=== PATIENT | female | born 1940 | race Caucasian/White ===

== ENCOUNTER 2017-01-07 19:53 | Inpatient (IN) | payer MEDICARE, OTHER ==
--- NOTE | ~2017-01-07 | HP ---
History And Physical [address] [place]. [address] NAME: THA HAMILTON : 40 STATUS : ADM IN PAT#: [id number] AGE: 76 ADM/REG DATE : 01/07/17 MR#: [id number] REPORT SERV DATE: 01/08/17 DICTATED BY: GOPI LEAVITT DATE: 01/07/17 REPORT STATUS : Draft TRANSCRIBED BY: MODL DATE: 01/07/17 DATE OF ADMISSION: 01/07/2017 CHIEF COMPLAINT: Anemia, possible GI bleed. Direct admission/transfer from [facility]. HISTORY OF PRESENT ILLNESS: Obtained from the patient as well as from the patient's medical records transferred with the patient from [facility] in [place], [place]. Apparently, the patient had sustained relatively recently left hip fracture for which she had ORIF at [facility]. Subsequently, she underwent physical therapy and just recently seems that she was discharged home. She returned to [facility] Emergency Room on 01/06/2017 with complaints of abdominal pain, complaints of constipation. In the emergency room department, the patient was noticed to have Hemoccult positive stools, decreased hemoglobin of 7.3 lower than her apparently known baseline, and she was admitted under Hospitalist Service at [facility]. The patient's hemoglobin was monitored and this morning, apparently hemoglobin had decreased, reportedly hemoglobin 6.9 with a hematocrit of 21.3. Therefore, the patient received blood transfusion, apparently only one unit, and the transfer was requested to our hospital for further management and evaluation. Presently, the patient is hemodynamically stable at the time of the arrival, and there is no "overt" GI bleeding reported. The patient does not have a cough or recently documented fever. Note that the medication list and the medical records sent with the patient from the outside hospital facility were thoroughly reviewed. The patient apparently had CT scan of the chest as well as a CT scan of the abdomen and pelvis during her short admission at the outside hospital. The results are suggesting possible left lower lobe infiltrate and "adrenal bilateral infiltrative disease." PAST MEDICAL HISTORY: Very complex significant for coronary artery disease with prior history of CABG, prior history of PCI and cardiac stents, history of hypertension, history of CHF with diastolic dysfunction, unknown recent ejection fraction. The patient's supervisor home energy consultant is Dr. Garza who had seen her recently during her admission at [facility]. History of COPD on chronic oxygen at home mostly at night, 2 L of oxygen by nasal cannula, history of obstructive sleep apnea with uncertain compliance with CPAP machine, history of continuing smoking besides the stroke, advised to quit doing so for over 60 years with smoking history from half a pack up to 3 pack of cigarettes daily throughout her life, history of right lung cancer with right middle lobectomy in the past. History of iron deficiency anemia, previously receiving blood transfusion and IV iron infusion as recommended by her hematology oncologist, followups usually by Dr. Avendano, history of chronic pain syndrome, multiple back surgeries and degenerative disk disease, history of diabetes type 2 insulin dependent, history of prior episodes of GI bleed with GERD and esophagitis by EGD [place] [address] 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 PAST SURGICAL HISTORY: Removal of right middle lobe and lymph nodes in 2003, apparently not under treatment, no chemotherapy or radiation therapy for her lung cancer. History of hernia surgery x5, history of hiatal hernia x2 surgery, hysterectomy, history of bilateral History And Physical [address] [address] NAME: THA HAMILTON : 40 STATUS : ADM IN [facility]#: [id number] AGE: 76 ADM/REG DATE : 01/07/17 MR#: [id number] REPORT SERV DATE: 01/08/17 DICTATED BY: GOPI LEAVITT DATE: 01/07/17 REPORT STATUS : Draft TRANSCRIBED BY: CASH DATE: 01/07/17 cataract surgery with intraocular lens implant, history of CABG 4 vessel disease in 2004, history of multiple cardiac stents and cardiac catheterization, history of several back surgery, laminectomy and then to "clean out Staph infection" apparently x4, history of recent left hip ORIF apparently at [facility] for left hip fracture. ALLERGIES: TO LISINOPRIL AND CODEINE. MEDICATIONS: At home according to the list provided; the patient is supposed to take albuterol MDI two puffs 3 times a day p.r.n.; Coreg 3.125 mg p.o. daily ("if correct dose and schedule, the patient is still taking it); Cardizem CD 120 mg p.o. q.a.m.; Flonase nasal spray two sprays each nostril q.a.m. and p.r.n. at bedtime; Advair Diskus 250/50 one inhalation b.i.d.; Lasix 40 mg p.o. q.a.m.; Lantus 10 units subcu b.i.d.; Imdur 30 mg p.o. q.a.m.; metformin 1000 mg p.o. b.i.d.; MS Contin 15 mg p.o. q.12 hours; Prilosec 40 mg p.o. q.a.m.; Zofran 4 mg p.o. b.i.d. p.r.n. shortness of breath; oxycodone 15 mg p.o. q.6 hours p.r.n. breakthrough pain; potassium KCl 10 mEq p.o. t.i.d.; Spiriva one inhalation daily; nitroglycerin spray, sublingual p.r.n. chest pain. FAMILY HISTORY: Significant for hypertension, coronary artery disease. SOCIAL HISTORY: She still smokes as mentioned above. Denies alcohol abuse. Denies illicit recreational drug abuse. REVIEW OF SYSTEMS: Review of systems per H and P, otherwise negative in all review of systems. Please note, that the comprehensive review of system obtained and pertinent positives were including in the H and P. PHYSICAL EXAMINATION: GENERAL: Pleasant, cooperative, presently in no acute distress. VITAL SIGNS: At the time of the transfer; blood pressure 132/79, pulse 63, respiratory rate 18, temperature 99.6, oxygen saturation 96% on 2 L by nasal cannula. HEENT: With bilateral cataracts. Extraocular movements intact. Throat, mild erythema. No exudate. NECK: Supple. No JVD. No bruits. No thyromegaly. No lymph nodes. LUNGS: Bilateral air entry. Emphysematous with scattered crackles bilateral bases. Occasional wheezes. Overall good airway movement. No rales. HEART: Positive S1, S2. Regular rate and rhythm. Positive mitral regurgitation. Murmur at the apex. PMI nondisplaced by palpation. ABDOMEN: Positive bowel sounds. Soft with mild tenderness right periumbilical area. No guarding, no rebound tenderness, no hepatosplenomegaly. Reported Hemoccult-positive stools from [facility]. EXTREMITIES: With decreased range of motion. Osteoarthritic changes. No clubbing, no cyanosis, no edema. Status post left hip fracture with surgical incision scar healing well. No signs of infection or drainage. NEUROLOGIC: Alert and oriented x3. Grossly nonfocal. Cranial nerves 2 through 12 grossly intact. Motor strength 5/5 symmetrical bilateral. Deep tendon reflexes 2/2 symmetrical bilateral. History And Physical [address] [address] NAME: THA HAMILTON : 40 STATUS : ADM IN PAT#: [id number] AGE: 76 ADM/REG DATE : 01/07/17 MR#: [id number] REPORT SERV DATE: 01/08/17 DICTATED BY: GOPI LEAVITT DATE: 01/07/17 REPORT STATUS : Draft TRANSCRIBED BY: CASH DATE: 01/07/17 BACK: With decreased range of motion. No localized tenderness. No CVA tenderness. SKIN: No rashes, no lacerations. Multiple bruises, apparently old since her previous falls and admissions. SIGNIFICANT LABORATORY DATA: No laboratory data available at this moment as the patient is a direct admission from outside hospital facility. Review of medical records sent from [facility] showed the patient had Hemoccult positive stools, showed chest x-ray suggesting possible left lower lobe airspace disease/infiltrate. Hemoglobin 6.9, hematocrit 21.3. Magnesium 2.3, initial hemoglobin 7.8, hematocrit 23.3 on 01/06/2017, platelet count 502. Sodium 137, potassium 3.8, chloride 95, bicarb 30, BUN 22, with a creatinine 1.02 which is higher than normal levels at [facility]. Liver function tests within normal limits. Glucose 255, lipase 12 which is within normal limits. Urinalysis was cloudy with white cells 5-10 and 3+ bacteria, BNP 2732 (normal range less than 1799), CK 53 with troponin I less than 0.3 which is normal limits. CT scan of the abdomen and pelvis with contrast on 01/06/2017 showed left lower lobe infiltrate, cholelithiasis and sludge ?, infiltrative disease of the bilateral adrenal glands, etiology undetermined. Also CT scan of the chest without contrast showed left lower lobe infiltrate. EKG was not available with the medical records sent over. ASSESSMENT AND PLAN AND PROBLEM LIST: The patient is a pleasant 76-year-old woman admitted as a direct admission from outside hospital facility due to significant symptomatic anemia. IMPRESSION: 1. Hematology. a. Anemia with acute blood loss component likely multifactorial with a recent left hip surgery also with Hemoccult positive stools. b. Status post blood transfusion one unit at outside hospital facility. The patient is going to be admitted, monitor with H and H and have stat laboratory data checked. If indicated, we are going to continue to provide blood transfusion. 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 Avendano and from her previous admission and hospitalization at [facility] where the patient had her left hip surgery. 2. GI problem with:. a. Hemoccult positive stools by report, with previously known gastroesophageal reflux disease and esophagitis and gastritis by prior endoscopy [place] [address] Herring. Please note the patient has not had a colonoscopy in the past as per her account. Therefore, we are going to obtain a GI consult. We are going to use PPI with Protonix 40 mg IV b.i.d. 3. Cardiovascular with:. a. Known coronary artery disease with presently elevated troponin I (likely "type 2" on demand subendocardial ischemia). We are going to continue to monitor EKG, troponin I. The patient with no chest pain presently or other symptoms. We are going to hold any antiplatelet agent such as aspirin or Plavix due to her anemia and possible GI bleed. History And Physical [address] [address] NAME: THA HAMILTON : 40 STATUS : ADM IN PAT#: [id number] AGE: 76 ADM/REG DATE : 01/07/17 MR#: [id number] REPORT SERV DATE: 01/08/17 DICTATED BY: GOPI LEAVITT DATE: 01/07/17 REPORT STATUS : Draft TRANSCRIBED BY: MODJuan DATE: 01/07/17 b. Hypertension; essential hypertension. We are going to continue Cardizem and use IV hydralazine p.r.n. for increased blood pressure. c. Congestive heart failure by history. Prior diastolic dysfunction. We are going to obtain old records and prior 2D echo, and we are going to hold the Lasix for now. Strict I's and O's and daily weights. 4. Pulmonary with:. a. Chronic obstructive pulmonary disease on chronic home oxygen therapy/chronic hypoxemic respiratory failure. b. Obstructive sleep apnea, with uncertain compliance on the home CPAP machine. c. Tobacco dependency disorder. d. History of lung cancer, treated with right lung lobectomy in the past. e. Left lower lobe airspace disease, possible pneumonia versus atelectasis. For all the above, we are going to continue the patient's bronchodilator therapy. We are going to continue oxygen supplementation on 2 L of oxygen by nasal cannula. We are going to continue the antibiotics started at outside hospital facility with Rocephin and Zithromax and may consider change to a more comprehensive antibiotic coverage for possible healthcare-associated pneumonia due to her recent hospitalization at different hospital when she had her left hip fracture repaired. Symptomatically, the patient does not have a pneumonic process at this moment. 5. Urinary tract infection (likely) with abnormal urinalysis at the outside hospital facility. The patient already had received IV antibiotics. We are going to obtain old records and possible culture results from outside hospital facility. Continue Rocephin for now. 6. Musculoskeletal problem. a. Status post recent left hip surgery for hip fracture. b. Osteoarthritis, osteoporosis, deconditioning, and debilitation. c. Chronic pain syndrome. d. Degenerative disc disease status post multiple back surgeries. We are going to continue physical therapy. We are going to continue her pain management medication. 7. Endocrinologic problem with:. a. Diabetes type 2, insulin dependent, with complications. We are going to continue Lantus/Levemir sliding scale. Check hemoglobin A1c. Hold metformin for now. Provide diabetic education. b. Hyperlipidemia, mixed type, provide low cholesterol diet. 8. Miscellaneous with history of cerebrovascular disease and prior CVA x2, and history of prior reported meningitis. Please note the patient is a limited code at this moment with the "chemical code only" as per her well-known wishes. Please note also the written H and P, and written orders and instructions. PROGNOSIS: Moderately good for this admission. Discussed with patient, and questions are answered in full. History And Physical [address] [address] NAME: THA HAMILTON : 40 STATUS : ADM IN PAT#: [id number] AGE: 76 ADM/REG DATE : 01/07/17 MR#: [id number] REPORT SERV DATE: 01/08/17 DICTATED BY: GOPI LEAVITT ION DATE: 01/07/17 REPORT STATUS : Draft TRANSCRIBED BY: MODJuan DATE: 01/07/17 RF/LATASHAL Gopi Leavitt M.D. / [id number] CC: MD Rinku Solorzano M.D. Derek W Holland, M.D. Dannis Hood Jr., M.D.
--- NOTE | ~2017-01-07 | CN ---
Consultation Report [facility] [address] [place]. [address] NAME: THA HAMILTON : 40 STATUS : ADM IN PAT#: [id number] AGE: 76 ADM/REG DATE : 01/07/17 MR#: [id number] REPORT SERV DATE: 01/09/17 DICTATED BY: BRANDAN GARZA JR. DATE: 01/09/17 REPORT STATUS : Draft TRANSCRIBED BY: CASH DATE: 01/09/17 DATE OF CONSULTATION: REFERRING PHYSICIAN: Christa Mcmullen MD INDICATION: Gastrointestinal bleeding, history of PCI, paroxysmal atrial fibrillation. HISTORY OF PRESENT ILLNESS: The patient is a 76-year-old white female with history of severe emphysema, history of known ischemic cardiomyopathy with known ejection fraction of approximately 40% to 45% with severe peripheral vascular disease, peripheral arterial disease, severe apache multivessel epicardial disease, status post prior CAB, history of paroxysmal atrial fibrillation with recurrent gastrointestinal hemorrhage while on either warfarin or factor X agents, for which either have been stopped in the past, who presented with constipation, obstipation, unstable angina, and bxi-NY-kejsohjth myocardial infarction with sepsis inflammatory response syndrome recently to [facility]. She was noted to have diminished pulses in the left arm. After she was stabilized, cardiac catheterization was performed. She was noted to have a severe stenosis of the left subclavian, which supplied blood flow to the BRONSON to the LAD, of which there was no other vessel which provided flow to the mid and distal LAD. Percutaneous transluminal angioplasty of the subclavian was performed by Dr. Johnson with acute impingement of the BRONSON at the ostium, for which emergent angioplasty of the BRONSON to the LAD was performed. A bare-metal stent was placed at that time. A SHAD-3 flow was noted with excellent result. She subsequently was placed on aspirin, Plavix, diltiazem, nitrates, and a statin and soon readied for inpatient rehabilitation. While on inpatient rehabilitation, it is reported that she signed out against medical advice and did not take her prescriptions with her. She has been home for several days with continued constipation and obstipation and has been reported to be manually "digging her stool out of her rectum." She now presents with severe anemia with hemoglobin of approximately 7.5 and brown stools laced with blood. She denies any current angina and has persistent anterior T-wave inversion with sinus rhythm with PACs. Blood pressure appears to be controlled, and telemetry notes occasional paroxysmal atrial fibrillation. She denies any new dyspnea. REVIEW OF SYSTEMS: A 10-point review of systems otherwise is unremarkable. ALLERGIES: NONE KNOWN, OTHER THAN LISINOPRIL AND CODEINE WELL THE RICKI/RECEPTOR BLOCKERS. PRESENT MEDICATIONS: Include albuterol, diltiazem which replaced prior prescriptions for carvedilol, Flonase nasal spray, Advair Diskus, Lasix, isosorbide, insulin, metformin, morphine, Protonix, Zofran, potassium, Spiriva, and nitroglycerin. She also had been placed on a statin and on Ranexa, which she is taking neither. Aspirin and Plavix were also prescribed, of which she is taking neither. PAST MEDICAL HISTORY: Notable for a history of hypertension, coronary artery disease, Consultation Report [address] [address] NAME: THA HAMILTON : 40 STATUS : ADM IN [facility]#: [id number] AGE: 76 ADM/REG DATE : 01/07/17 MR#: [id number] REPORT SERV DATE: 01/09/17 DICTATED BY: BRANDAN GARZA JR. DATE: 01/09/17 REPORT STATUS : Draft TRANSCRIBED BY: CASH DATE: 01/09/17 ischemic cardiomyopathy, prior CVA, diabetes, prior myocardial infarction, chronic anemia, frequent recurrent gastrointestinal hemorrhaging, history of prior lung cancer with a new infiltrate and new nodules, paroxysmal atrial fibrillation with elevated CHADS-VASc score and elevated HAS-BLED score, history of bilateral neuropathy, meningitis, irritable bowel, chronic constipation, sleep apnea, emphysema, history of hernia, arthritis. PAST SURGICAL HISTORY: Notable for herniorrhaphy, hiatal hernia surgery, hysterectomy, CAB, PTLA of the left subclavian, PCI, spinal surgery. SOCIAL HISTORY: Notable for continued tobacco use against medical advice. No ethanol or IV drug use. FAMILY HISTORY: Notable for coronary artery disease. PHYSICAL EXAMINATION: VITAL SIGNS: Blood pressure is 132/60, pulse is 74 and irregular, respirations 14. The patient is afebrile. HEENT: Notable for temporal wasting. NECK: Supple. Bilateral carotid bruits are noted. CARDIOVASCULAR SYSTEM: Regular rate, regular rhythm. LUNGS: Notable for diminished breath sounds in both bases with wheezes. ABDOMEN: Soft. Normoactive bowel sounds. EXTREMITIES: 1+ with no evidence of pedal edema. Bruising is noted in all four extremities. NEUROLOGIC: She appears to be grossly intact. LABORATORY DATA: Includes a sodium of 145, potassium 3.7, chloride 110, BUN 14, creatinine of 0.7, GFR of 98 mL/minute, glucose of 57, calcium of 8.2, magnesium 1.9, phosphorus 3.7. H and H of 8.3 and 26.4, white count of 11.5, platelet count of 428,000. CK of 33, MB of 1.6, troponin of 0.10. BNP of 651. TSH of 0.814. EKG is notable for sinus rhythm with frequent PACs; sinus arrhythmia; anterior precordial T-wave inversion, which appears improved from last recorded known tracing; nonspecific inferior ST changes. Chest x-ray interpretation is notable for lower lobe infiltrate. A BNP level of [address] findings support infiltrate in the lung as well as possible nodules. IMPRESSION: 1. A 76-year-old white female with history of ischemic cardiomyopathy with an ejection fraction known of approximately 40% to 45% with known chronic systolic dysfunction, known chronic diastolic dysfunction with known mild mitral insufficiency, status post recent left subclavian stent implantation, with impingement and partial occlusion of the BRONSON to the LAD, status post emergent bare-metal stent with a PCI to the ostial proximal BRONSON to the LAD on 12/24 with no objective new ischemia noted. Elevated troponins likely may be secondary to demand ischemia and severe apache multivessel disease, of which the patient is known to have. Consultation Report [id number] [facility] [place]. [address] NAME: THA HAMILTON : 40 STATUS : ADM IN PAT#: [id number] AGE: 76 ADM/REG DATE : 01/07/17 MR#: [id number] REPORT SERV DATE: 01/09/17 DICTATED BY: BRANDAN GARZA JR. DATE: 01/09/17 REPORT STATUS : Draft TRANSCRIBED BY: CASH DATE: 01/09/17 2. History of paroxysmal atrial fibrillation with elevated CHADS2-VASc score with elevated HAS-BLED score with recurrent gastrointestinal hemorrhage on both warfarin as well as recently on factor X agents. 3. History of continued tobacco use against medical advice. 4. Chronic constipation with probable patient-induced rectal trauma with subsequent hemorrhage. 5. History of hypertension and known LV hypertrophy. 6. Known renal insufficiency with mild improvement in renal function currently. 7. Known poor compliance with medication regimen. PLANS AND RECOMMENDATIONS: 1. No warfarin or factor X agent for paroxysmal atrial fibrillation, even though CHADS- VASc score is elevated as HAS-BLED score is too high and the patient has had frequent recurrent GI bleeding with each trial of anticoagulation for indication of paroxysmal atrial fibrillation. 2. Cannot interrupt the Plavix or the aspirin for the next three weeks, even if actively bleeding. If actively bleeding, then risks outweighed by the benefits of the procedure, would proceed with endoscopy, but I cannot interrupt aspirin or Plavix in hopes of cauterization. 3. Watch hematocrit and try to keep hematocrit above 28 to treat angina and small vessel disease. 4. DVT prophylaxis with SCDs or MOSES hose. 5. Tobacco cessation. 6. Would resume Lipitor. May require Ranexa in the near future 500 p.o. b.i.d. if an additional anginal support is necessary. We will follow with you in this difficult case with multiple significant comorbidities and poor compliance and patient insight. DH/MODL Brandan Garza Jr., M.D. / [id number] CC: Cole Thompson M.D. Camille Sommer, MD
--- NOTE | ~2017-01-07 | DS ---
Discharge Summary [facility] [address] [place]. [address] NAME: THA HAMILTON : 40 STATUS : DIS IN PAT#: [id number] AGE: 76 ADM/REG DATE : 01/07/17 MR#: [id number] REPORT SERV DATE: 01/14/17 DICTATED BY: VIDHI CHU DATE: 01/13/17 REPORT STATUS : Draft TRANSCRIBED BY: MODL DATE: 01/13/17 ADMISSION DATE: 01/07/2017 DISCHARGE DATE: 01/13/2017 CONDITION ON DISCHARGE: Stable. DISPOSITION: To SNF for rehab inpatient. REASON FOR TRANSFERRING TO INPATIENT REHAB OR STIFFNESS: Physical deconditioning. DIAGNOSES ON DISCHARGE: 1. Acute blood loss anemia from lower GI bleed-this has resolved. 2. The patient has not required any endoscopy at this time. It has resolved spontaneously on its own. This was most likely secondary to severe constipation that the patient has because of chronic narcotic dependence. The patient states that she is dependent on narcotics because of several back surgeries and hip replacements and osteoarthritis which causes her to have chronic severe pain. 3. Coronary artery disease, recent cardiac catheterization and PCI. The patient is on aspirin, Plavix, statin, and Isordil for this per Cardiology. 4. Paroxysmal atrial fibrillation-no anticoagulation in this patient given the risk of gastrointestinal bleed; however, continue aspirin and Plavix. Ventricular response rate is controlled in this patient with diltiazem. 5. Chronic diastolic dysfunction of the heart, continue Bumex. 6. Chronic obstructive pulmonary disease, stable. Continue Spiriva, inhaled corticosteroids. Supplemental oxygen as needed. 7. Physical deconditioning and hence transferred to rehab. 8. Diabetes mellitus, which is controlled with sliding scale insulin. MEDICATIONS: The patient will be transferred on will include the followin. Aspirin 81 mg once a day, Lipitor 40 mg once a day, Bumex 1 mg once a day, Plavix 75 mg once a day, diltiazem CD 120 mg once a day, fluticasone 2 sprays in each nostril once a day, insulin level 3 sliding scale p.r.n. for blood glucose levels higher per scale. 2. Isosorbide mononitrate or Imdur ER 60 mg once a day, magnesium oxide 400 mg once a day, MS Contin 15 mg p.o. b.i.d. as the patient insists that she has to have this, Movantik or naloxegol oxalate 25 mg once a day, omeprazole 40 mg p.o. once a day, polyethylene glycol on an as needed basis p.r.n. for constipation. 3. Potassium 10 mEq p.o. t.i.d. 4. The patient will also be on Advair Diskus 250/50 one puff b.i.d., and metformin 1000 mg p.o. b.i.d., Spiriva one capsule as directed via [employer] once a day, Ventolin HFA two puffs three times a day p.r.n., Zofran 4 mg p.o. b.i.d. p.r.n. The most recent labs that I have on this patient include the followin. On 01/13/2017, she has the following most recent labs. Sodium 139, potassium 4.2, BUN is 15, creatinine is 0.7, glucose is 191 on 01/12/2017. On 01/12/2017, also her WBC count is normal at 6.5, hemoglobin 9.7, hematocrit 31.6 which is as good as it can get in her, platelets 398. 2. Her BNP stays chronically elevated at about 650. Discharge Summary [address] [address] NAME: THA HAMILTON : 40 STATUS : DIS IN PAT#: [id number] AGE: 76 ADM/REG DATE : 01/07/17 MR#: [id number] REPORT SERV DATE: 01/14/17 DICTATED BY: VIDHI CHU DATE: 01/13/17 REPORT STATUS : Draft TRANSCRIBED BY: MODL DATE: 01/13/17 3. Her troponin I was slightly elevated on 01/08/2017 upon admission, but the patient is asymptomatic now and as mentioned above, the patient had a recent PCI for which she is on aspirin and Plavix and has been evaluated by financial representative. A1c shows fairly normally controlled diabetes mellitus for which she will be on sliding scale insulin level 3. I have spent about 40 minutes in coordinating discharge care of this patient including face- to-face encounter and summarizing this discharge. ADONAY/CASH Vidhi Chu M.D. / [id number] CC: Cole Thompson M.D.
--- NOTE | ~2017-01-07 | CN ---
Consultation Report [facility] [address] [place]. [address] NAME: THA TAVAREZ : 40 STATUS : ADM IN [facility]#: [id number] AGE: 76 ADM/REG DATE : 01/07/17 MR#: [id number] REPORT SERV DATE: 01/09/17 DICTATED BY: ZEHRA MCMULLEN DATE: 01/09/17 REPORT STATUS : Draft TRANSCRIBED BY: MODJuan DATE: 01/09/17 GI CONSULTATION DATE OF CONSULTATION: 01/08/2017 REASON FOR CONSULTATION: Anemia. HISTORY OF PRESENT ILLNESS: Ms. Tavarez is a 76-year-old female, who has come from [facility] after suffering from a left hip fracture, status post ORIF at [facility]. She also has some abdominal pain and constipation. GI has been consulted for history of anemia and FOB positive stools. She denies any clear melena. No hematochezia or rectal bleeding. No nausea or vomiting. No coffee-ground or hematemesis. Her hemoglobin was 7.3, went down to 6.9, hematocrit 21.3. Today, her hemoglobin is 7.7, hematocrit is 24, platelets 409. She had an EGD by Dr. Herring in October 2014 for her anemia and melena at that time, which showed esophagitis, hiatal hernia, gastritis, and duodenitis in the bulb, and normal-appearing second and third portion of duodenum. PAST MEDICAL HISTORY: Coronary artery disease, PCI with stent placement, hypertension, CHF, CVA, diabetes, COPD, dyslipidemia, and lung cancer. FAMILY HISTORY: Coronary artery disease and hypertension. SOCIAL HISTORY: Patient continues to smoke cigarettes. PAST SURGICAL HISTORY: Lymph node and right lobectomy for lung cancer, back surgery, ORIF, hiatal hernia surgery, hysterectomy, abdominal hernia surgery, and cataract surgery. MEDICATIONS: Reviewed. ALLERGIES: REVIEWED. PHYSICAL EXAMINATION: GENERAL: The patient is an elderly female, in no acute distress. HEENT: Atraumatic and normocephalic. Anicteric. Mucous membranes moist. CARDIAC: S1 and S2. CHEST: Clear. ABDOMEN: Soft, nontender, and nondistended. Bowel sounds normoactive. LABORATORY DATA: WBC 6.6, hemoglobin 7.7, hematocrit 24, platelets 409, sodium 142, potassium 4.5, chloride 88, bicarb 27, BUN 19, creatinine 1.78, glucose 172. Liver enzymes normal. IMPRESSION AND PLAN: Anemia FOB positive. The patient had an EGD performed by Dr. Herring for this reason in 2014. The patient does not seem to have overt GI bleed at this time. We Consultation Report [facility] [address] [place]. [address] NAME: THA TAVAREZ : 40 STATUS : ADM IN [facility]#: [id number] AGE: 76 ADM/REG DATE : 01/07/17 MR#: [id number] REPORT SERV DATE: 01/09/17 DICTATED BY: ZEHRA MCMULLEN DATE: 01/09/17 REPORT STATUS : Draft TRANSCRIBED BY: MODL DATE: 01/09/17 will continue to follow with you and discuss with Dr. Rinku Herring, regarding any further endoscopic evaluation. CS/MODL Zehra Mcmullen MD / [id number] CC: Cole Thompson M.D.
[~2017-01-07 19:53] MED LIST: *UNABLE1; ADVAIR; ADVAIR100 INH; ADVAIR250 INH; ASAB PO; ASABAYER PO; AVINZA30 PO; BENTYL20 PO; CARD30 PO; CARDIZEM LA180 MG PO; CARTIA XT120 MG/24 PO; CARTIA XT300 MG/24 PO; CRESTOR10 PO; CRESTOR20 MG PO; DIGITEK0.125 MG PO; EZFE 200200 MG PO; FLONASE NAS; FORTEO SC; GLUCOPHAGE1000 MG PO; IMDUR30 PO; ISOSORB DIN30 MG PO; KDUR10 PO; KLOR-CON 1010 MEQ PO; L40 PO; LAN125 PO; LANTUSCART PO; LORTAB10 PO; MAXIMUM D3 PO; MICRO-K10 MEQ PO; MSCONT60 PO; NEUR400 PO; NITROGLYCERIN PO; NITROSTAT0.4 MG SL; NOVOLOG SC; NOVOPEN SC; OXYCOD PO; PLAVIX PO; PR25 PO; PRILO PO; PRIN10 PO; PROAIR HFA INH; RAN500 PO; SINGULAIR1 PO; SPIRIVA INH; VENTOLIN HFA INH; VERAMYST27.5 MCG NAS; X25 PO
[2017-01-07] MEDS ORDERED: GLUCOPHAGE1000 MG PO (20:54)
[2017-01-07] MEDS ORDERED: KLOR-CON 1010 MEQ PO (20:55)
[2017-01-07] MEDS ORDERED: PRILOSEC40 MG PO (20:55)
[2017-01-07] MEDS ORDERED: CARTIA XT120 MG/24 PO (20:55)
[2017-01-07] MEDS ORDERED: ADVAIR250 INH (20:56)
[2017-01-07] MEDS ORDERED: SPIRIVA INH (20:56)
[2017-01-07] MEDS ORDERED: IMDUR30 PO (20:56)
[2017-01-07] MEDS ORDERED: VENTOLIN HFA INH (20:57)
[2017-01-07] MEDS ORDERED: L40 PO (20:57)
[2017-01-07] MEDS ORDERED: FLONASE NAS ×2 (20:58)
[2017-01-07 20:59] LABS: BASOPHILS 0.1 %; BASOPHILS ABSOLUTE 0.01 10/3/uL (0.0-0.16); EOSINOPHILS 0.3 %; EOSINOPHILS ABSOLUTE 0.02 10/3/uL (0.0-0.53); IMMATURE GRANULOCYTES 0.5 %; IMMATURE GRANULOCYTES ABSOLUTE 0.04 10/3/uL (0.0-0.11); LYMPHOCYTES 5.6 %; LYMPHOCYTES ABSOLUTE 0.42 10/3/uL (0.67-4.30); MEAN CORPUS HGB CONC 31.8 g/dL (32.0-36.0); MEAN CORPUSCULAR HEMOGLOB 28.6 pg (26.0-34.0); MEAN PLATELET VOLUME 9.3 fL (9.2-13.0); MONOCYTES 0.5 %; MONOCYTES ABSOLUTE 0.04 10/3/uL (0.21-1.20); NEUTROPHILS ABSOLUTE 6.91 10/3/uL (2.02-8.40); RBC DISTRIBUTION WIDTH 17.7 % (12.0-16.0); WHITE BLOOD CELLS 7.4 10/3/uL (4.5-10.5)
[2017-01-07] MEDS ORDERED: ZOFRAN4 PO (20:59)
[2017-01-07 21:01] LABS: HEMATOCRIT 29.2 % (36.0-48.0); HEMOGLOBIN 9.3 g/dL (12.0-16.0); MANUAL DIFF NO %; MEAN CORPUSCULAR VOLUME 89.8 fL (80-100); PLATELET COUNT 490 10/3/uL (150-400); RED CELL COUNT 3.25 10/6/uL (4.0-5.6)
[2017-01-07] MEDS ORDERED: MSCONT15 PO (21:01)
[2017-01-07] MEDS ORDERED: ROXICODONE15 MG PO (21:02)
[2017-01-07] MEDS ORDERED: COREG3 PO (21:03)
[2017-01-07] MEDS ORDERED: LANTUSCART SC (21:04)
[2017-01-07] MEDS ORDERED: NITROGLYCERIN SPRAY SL (21:05)
[2017-01-07 21:17] LABS: BUN (BLOOD UREA NITROGEN) 17 MG/DL (6-23); CALCIUM, SERUM 8.1 MG/DL (8.5-10.4); CHLORIDE, SERUM 107 MMOL/L (96-112); CO2 (CARBON DIOXIDE) 29 MMOL/L (24-34); CPK 48 U/L (0-200); CREATININE 1.13 MG/DL (0.55-1.02); GFR AFRICAN AMERICAN 55 ML/MIN (>=60); GFR NON AFRICAN AMERICAN 47 ML/MIN (>=60); PHOSPHORUS, SERUM 3.3 MG/DL (2.5-4.5); SODIUM, SERUM 144 MMOL/L (135-148)
[2017-01-07 21:18] LABS: CK-MB 1.7 NG/ML; GLUCOSE, SERUM 294 MG/DL (60-99); POTASSIUM, SERUM 4.8 MMOL/L (3.5-5.3); TROPONIN I 0.14 NG/ML (<0.05)
[2017-01-07 21:50] LABS: PROCALCITONIN <0.05 ng/mL (<0.5)
[2017-01-07 22:52] LABS: RETICULOCYTE COUNT 4.7 % (0.5-2.9); RETICULOCYTE COUNT ABSOLUTE 151.9 10/3/uL (20.2-119.8)
[2017-01-07 23:10] LABS: DIRECT BILIRUBIN 0.1 MG/DL (0.0-0.4); FERRITIN 409 NG/ML (8-252); INDIRECT BILIRUBIN(NOT ORDER) 0.3 MG/DL (0.1-0.9); IRON BINDING CAPACITY 248 MCG/DL (225-410); IRON, SERUM 47 MCG/DL (35-150); SGOT(AST) 27 U/L (5-40); SGPT(ALT) 31 U/L (5-65); TOTAL BILIRUBIN 0.4 MG/DL (0-1.2); TOTAL PROTEIN 6.6 G/DL (6.0-8.5)
[2017-01-07 23:11] LABS: ALKALINE PHOSPHATASE 108 U/L (45-117); ULTRASENSITIVE TSH 0.814 MCIU/ML (0.358-3.740)
[2017-01-08 05:55] LABS: BASOPHILS 0.2 %; BASOPHILS ABSOLUTE 0.01 10/3/uL (0.0-0.16); EOSINOPHILS 0 %; HEMOGLOBIN 7.9 g/dL (12.0-16.0); IMMATURE GRANULOCYTES 0.3 %; IMMATURE GRANULOCYTES ABSOLUTE 0.02 10/3/uL (0.0-0.11); LYMPHOCYTES 12.6 %; LYMPHOCYTES ABSOLUTE 0.83 10/3/uL (0.67-4.30); MEAN CORPUS HGB CONC 32.9 g/dL (32.0-36.0); MEAN CORPUSCULAR HEMOGLOB 29.4 pg (26.0-34.0); MEAN CORPUSCULAR VOLUME 89.2 fL (80-100); MEAN PLATELET VOLUME 9.2 fL (9.2-13.0); MONOCYTES 4.4 %; MONOCYTES ABSOLUTE 0.29 10/3/uL (0.21-1.20); NEUTROPHILS 82.5 %; NEUTROPHILS ABSOLUTE 5.44 10/3/uL (2.02-8.40); PLATELET COUNT 409 10/3/uL (150-400); RBC DISTRIBUTION WIDTH 17.9 % (12.0-16.0); RED CELL COUNT 2.69 10/6/uL (4.0-5.6); WHITE BLOOD CELLS 6.6 10/3/uL (4.5-10.5)
[2017-01-08 05:58] LABS: MANUAL DIFF NO %
[2017-01-08 06:11] LABS: ALBUMIN 2.5 G/DL (3.5-5.0); BUN (BLOOD UREA NITROGEN) 19 MG/DL (6-23); CALCIUM, SERUM 8.3 MG/DL (8.5-10.4); CHLORIDE, SERUM 108 MMOL/L (96-112); CO2 (CARBON DIOXIDE) 27 MMOL/L (24-34); CPK 33 U/L (0-200); CREATININE 0.78 MG/DL (0.55-1.02); GFR AFRICAN AMERICAN 86 ML/MIN (>=60); GFR NON AFRICAN AMERICAN 74 ML/MIN (>=60); PHOSPHORUS, SERUM 3.7 MG/DL (2.5-4.5); POTASSIUM, SERUM 4.5 MMOL/L (3.5-5.3); SGOT(AST) 14 U/L (5-40); SGPT(ALT) 16 U/L (5-65); SODIUM, SERUM 142 MMOL/L (135-148); TOTAL BILIRUBIN 0.3 MG/DL (0-1.2); TOTAL PROTEIN 5.4 G/DL (6.0-8.5)
[2017-01-08 06:13] LABS: ALKALINE PHOSPHATASE 73 U/L (45-117); CK-MB 1.6 NG/ML; DIRECT BILIRUBIN < 0.1 MG/DL (0.0-0.4); GLUCOSE, SERUM 172 MG/DL (60-99); INDIRECT BILIRUBIN(NOT ORDER) 0.2 MG/DL (0.1-0.9)
[2017-01-08 19:26] LABS: HEMOGLOBIN 8.5 g/dL (12.0-16.0)
[2017-01-08 19:28] LABS: HEMATOCRIT 26.7 % (36.0-48.0)
[2017-01-09 03:43] LABS: ALLENS TEST Pos; BE (BASE EXCESS) 1.6 MEQ/L (0 +/- 2.5); CARBOXYHEMOGLOBIN 0.1 % (0-3); DEVICE NC; HCO3 (ACTUAL BICARBONATE) 26.9 MEQ/L (23-27); HEMOBLOGIN CONTENT 8.9 G/DL (12-16); INSTRUMENT SERIAL # 35151; METHEMOGLOBIN 0.8 % (0-3); O2 CONTENT 12.2 VOL% (18-24); PCO2 (CO2 TENSION) 46 MMHG (35-45); PO2 (O2 TENSION) 105 MMHG (79-93); SAMPLE Arterial; pH 7.39 (7.37-7.43)
[2017-01-09 04:41] LABS: BASOPHILS 0.2 %; BASOPHILS ABSOLUTE 0.02 10/3/uL (0.0-0.16); EOSINOPHILS 1.3 %; EOSINOPHILS ABSOLUTE 0.15 10/3/uL (0.0-0.53); HEMATOCRIT 26.4 % (36.0-48.0); HEMOGLOBIN 8.3 g/dL (12.0-16.0); IMMATURE GRANULOCYTES 0.3 %; IMMATURE GRANULOCYTES ABSOLUTE 0.04 10/3/uL (0.0-0.11); LYMPHOCYTES 13.1 %; LYMPHOCYTES ABSOLUTE 1.51 10/3/uL (0.67-4.30); MANUAL DIFF NO %; MEAN CORPUS HGB CONC 31.4 g/dL (32.0-36.0); MEAN CORPUSCULAR HEMOGLOB 28.4 pg (26.0-34.0); MEAN CORPUSCULAR VOLUME 90.4 fL (80-100); MEAN PLATELET VOLUME 9.2 fL (9.2-13.0); MONOCYTES 5.9 %; MONOCYTES ABSOLUTE 0.68 10/3/uL (0.21-1.20); NEUTROPHILS 79.2 %; NEUTROPHILS ABSOLUTE 9.14 10/3/uL (2.02-8.40); PLATELET COUNT 428 10/3/uL (150-400); RBC DISTRIBUTION WIDTH 17.9 % (12.0-16.0); RED CELL COUNT 2.92 10/6/uL (4.0-5.6); WHITE BLOOD CELLS 11.5 10/3/uL (4.5-10.5)
[2017-01-09 04:50] LABS: CALCIUM, SERUM 8.2 MG/DL (8.5-10.4); CHLORIDE, SERUM 110 MMOL/L (96-112); CO2 (CARBON DIOXIDE) 26 MMOL/L (24-34); GFR AFRICAN AMERICAN 98 ML/MIN (>=60); GFR NON AFRICAN AMERICAN 84 ML/MIN (>=60); POTASSIUM, SERUM 3.7 MMOL/L (3.5-5.3); SODIUM, SERUM 145 MMOL/L (135-148)
[2017-01-09 04:54] LABS: BUN (BLOOD UREA NITROGEN) 14 MG/DL (6-23); GLUCOSE, SERUM 57 MG/DL (60-99)
[2017-01-09 18:12] LABS: HEMATOCRIT 24.4 % (36.0-48.0); HEMOGLOBIN 7.8 g/dL (12.0-16.0)
[2017-01-09 23:31] LABS: HEMOGLOBIN 8.6 g/dL (12.0-16.0)
[2017-01-10 04:48] LABS: BASOPHILS 0.3 %; BASOPHILS ABSOLUTE 0.02 10/3/uL (0.0-0.16); EOSINOPHILS 3.5 %; EOSINOPHILS ABSOLUTE 0.27 10/3/uL (0.0-0.53); HEMATOCRIT 26.7 % (36.0-48.0); HEMOGLOBIN 8.4 g/dL (12.0-16.0); IMMATURE GRANULOCYTES 0.4 %; IMMATURE GRANULOCYTES ABSOLUTE 0.03 10/3/uL (0.0-0.11); LYMPHOCYTES 16.2 %; LYMPHOCYTES ABSOLUTE 1.25 10/3/uL (0.67-4.30); MEAN CORPUS HGB CONC 31.5 g/dL (32.0-36.0); MEAN CORPUSCULAR HEMOGLOB 28.8 pg (26.0-34.0); MEAN CORPUSCULAR VOLUME 91.4 fL (80-100); MEAN PLATELET VOLUME 9.3 fL (9.2-13.0); MONOCYTES 9.6 %; MONOCYTES ABSOLUTE 0.74 10/3/uL (0.21-1.20); NEUTROPHILS ABSOLUTE 5.42 10/3/uL (2.02-8.40); PLATELET COUNT 406 10/3/uL (150-400); RBC DISTRIBUTION WIDTH 17.8 % (12.0-16.0); RED CELL COUNT 2.92 10/6/uL (4.0-5.6); WHITE BLOOD CELLS 7.7 10/3/uL (4.5-10.5)
[2017-01-10 04:55] LABS: MANUAL DIFF NO %
[2017-01-10 05:17] LABS: BUN (BLOOD UREA NITROGEN) 16 MG/DL (6-23); CALCIUM, SERUM 8.3 MG/DL (8.5-10.4); CHLORIDE, SERUM 106 MMOL/L (96-112); CO2 (CARBON DIOXIDE) 29 MMOL/L (24-34); CREATININE 0.89 MG/DL (0.55-1.02); GFR AFRICAN AMERICAN 73 ML/MIN (>=60); GFR NON AFRICAN AMERICAN 63 ML/MIN (>=60); SODIUM, SERUM 142 MMOL/L (135-148)
[2017-01-10 05:18] LABS: GLUCOSE, SERUM 204 MG/DL (60-99); POTASSIUM, SERUM 4.7 MMOL/L (3.5-5.3)
[2017-01-10 11:27] LABS: HEMATOCRIT 31.8 % (36.0-48.0)
[2017-01-10 16:57] LABS: HEMATOCRIT 30.7 % (36.0-48.0); HEMOGLOBIN 9.7 g/dL (12.0-16.0)
[2017-01-11 05:14] LABS: BASOPHILS 0.6 %; BASOPHILS ABSOLUTE 0.04 10/3/uL (0.0-0.16); EOSINOPHILS 4.6 %; EOSINOPHILS ABSOLUTE 0.33 10/3/uL (0.0-0.53); HEMATOCRIT 28.8 % (36.0-48.0); HEMOGLOBIN 9.1 g/dL (12.0-16.0); IMMATURE GRANULOCYTES 0.3 %; IMMATURE GRANULOCYTES ABSOLUTE 0.02 10/3/uL (0.0-0.11); LYMPHOCYTES 25.1 %; LYMPHOCYTES ABSOLUTE 1.79 10/3/uL (0.67-4.30); MEAN CORPUS HGB CONC 31.6 g/dL (32.0-36.0); MEAN CORPUSCULAR HEMOGLOB 28.9 pg (26.0-34.0); MEAN CORPUSCULAR VOLUME 91.4 fL (80-100); MONOCYTES ABSOLUTE 0.64 10/3/uL (0.21-1.20); NEUTROPHILS 60.4 %; NEUTROPHILS ABSOLUTE 4.32 10/3/uL (2.02-8.40); PLATELET COUNT 402 10/3/uL (150-400); RBC DISTRIBUTION WIDTH 17.3 % (12.0-16.0); RED CELL COUNT 3.15 10/6/uL (4.0-5.6); WHITE BLOOD CELLS 7.1 10/3/uL (4.5-10.5)
[2017-01-11 05:15] LABS: MANUAL DIFF NO %
[2017-01-11 05:29] LABS: BUN (BLOOD UREA NITROGEN) 14 MG/DL (6-23); CALCIUM, SERUM 8.8 MG/DL (8.5-10.4); CHLORIDE, SERUM 104 MMOL/L (96-112); CO2 (CARBON DIOXIDE) 30 MMOL/L (24-34); GFR AFRICAN AMERICAN 83 ML/MIN (>=60); GFR NON AFRICAN AMERICAN 72 ML/MIN (>=60); POTASSIUM, SERUM 4.5 MMOL/L (3.5-5.3); SODIUM, SERUM 141 MMOL/L (135-148)
[2017-01-11 05:32] LABS: GLUCOSE, SERUM 154 MG/DL (60-99)
[2017-01-11 19:23] LABS: HEMATOCRIT 31.1 % (36.0-48.0); HEMOGLOBIN 9.9 g/dL (12.0-16.0)
[2017-01-12 05:16] LABS: BASOPHILS 0.5 %; BASOPHILS ABSOLUTE 0.03 10/3/uL (0.0-0.16); EOSINOPHILS 3.2 %; EOSINOPHILS ABSOLUTE 0.21 10/3/uL (0.0-0.53); HEMATOCRIT 28.7 % (36.0-48.0); HEMOGLOBIN 9.1 g/dL (12.0-16.0); IMMATURE GRANULOCYTES 0.3 %; IMMATURE GRANULOCYTES ABSOLUTE 0.02 10/3/uL (0.0-0.11); LYMPHOCYTES 23.2 %; LYMPHOCYTES ABSOLUTE 1.51 10/3/uL (0.67-4.30); MEAN CORPUS HGB CONC 31.7 g/dL (32.0-36.0); MEAN CORPUSCULAR VOLUME 91.4 fL (80-100); MEAN PLATELET VOLUME 9.4 fL (9.2-13.0); MONOCYTES 9.4 %; MONOCYTES ABSOLUTE 0.61 10/3/uL (0.21-1.20); NEUTROPHILS 63.4 %; NEUTROPHILS ABSOLUTE 4.12 10/3/uL (2.02-8.40); PLATELET COUNT 398 10/3/uL (150-400); RBC DISTRIBUTION WIDTH 17.2 % (12.0-16.0); RED CELL COUNT 3.14 10/6/uL (4.0-5.6); WHITE BLOOD CELLS 6.5 10/3/uL (4.5-10.5)
[2017-01-12 05:19] LABS: MANUAL DIFF NO %
[2017-01-12 05:32] LABS: BUN (BLOOD UREA NITROGEN) 15 MG/DL (6-23); CHLORIDE, SERUM 102 MMOL/L (96-112); CO2 (CARBON DIOXIDE) 33 MMOL/L (24-34); CREATININE 0.79 MG/DL (0.55-1.02); GFR AFRICAN AMERICAN 84 ML/MIN (>=60); GFR NON AFRICAN AMERICAN 73 ML/MIN (>=60); POTASSIUM, SERUM 4.2 MMOL/L (3.5-5.3); SODIUM, SERUM 139 MMOL/L (135-148)
[2017-01-12 05:34] LABS: GLUCOSE, SERUM 191 MG/DL (60-99)
[2017-01-12 18:32] LABS: HEMOGLOBIN 9.7 g/dL (12.0-16.0)
[2017-01-12 18:36] LABS: HEMATOCRIT 31.6 % (36.0-48.0)
== END 2017-01-13 15:25 | DRG 393 ==
LOC: 6NO 19:53
PROVIDERS: Internal Medicine; Internal Medicine Cardiovascular Disease; Internal Medicine Gastroenterology
DX: K64.9 Unspecified hemorrhoids (principal); J96.20 Acute and chronic respiratory failure, unspecified whether with hypoxia or hypercapnia; K92.2 Gastrointestinal hemorrhage, unspecified; D62 Acute posthemorrhagic anemia; J44.1 Chronic obstructive pulmonary disease with (acute) exacerbation; F11.20 Opioid dependence, uncomplicated; I48.0 Paroxysmal atrial fibrillation; I25.5 Ischemic cardiomyopathy; I25.10 Atherosclerotic heart disease of native coronary artery without angina pectoris; E11.9 Type 2 diabetes mellitus without complications; F17.210 Nicotine dependence, cigarettes, uncomplicated; I73.9 Peripheral vascular disease, unspecified; I49.1 Atrial premature depolarization; K44.9 Diaphragmatic hernia without obstruction or gangrene; K58.1 Irritable bowel syndrome with constipation; K21.9 Gastro-esophageal reflux disease without esophagitis; E78.5 Hyperlipidemia, unspecified; E78.00 Pure hypercholesterolemia, unspecified; G47.33 Obstructive sleep apnea (adult) (pediatric); G89.4 Chronic pain syndrome; Z79.4 Long term (current) use of insulin; Z95.1 Presence of aortocoronary bypass graft; Z82.49 Family history of ischemic heart disease and other diseases of the circulatory system; Z88.8 Allergy status to other drugs, medicaments and biological substances; Z88.5 Allergy status to narcotic agent; Z86.73 Personal history of transient ischemic attack (TIA), and cerebral infarction without residual deficits; Z85.118 Personal history of other malignant neoplasm of bronchus and lung; Z90.710 Acquired absence of both cervix and uterus
CPT/HCPCS: 36415; 36600; 71010; 71020; 80048; 80069; 80076; 82550; 82553; 82728; 82805; 82962; 83036; 83540; 83550; 83735; 83880; 84145; 84439; 84443; 84484; 85014; 85018; 85025; 85045; 86850; 86900; 86901; 93005; 94640; 97110-GP; 97161-GP; 97165-GO; 97530-GP; A9270-GY; C9113; G8978-CL-GP; G8979-CJ-GP; G8987-CK-GO; G8988-CJ-GO; J0456

== ENCOUNTER 2017-01-20 23:49 | Inpatient (IN) | payer MEDICARE, OTHER ==
--- NOTE | ~2017-01-20 | EGD ---
EGD REPORT [facility] [address] [address] NAME: ESTRELLITA TAVAREZ : 40 STATUS : ADM IN PAT#: [id number] AGE: 76 ADM/REG DATE : 01/21/17 MR#: [id number] REPORT SERV DATE: 01/23/17 DICTATED BY: JEFF HORAN DATE: 01/23/17 REPORT STATUS : Draft [facility]: [facility] DATE: 01/23/17 Endoscopy Center Patient Name: Estrellita Tavarez Date of : 1940 Attending MD: JEFF HORAN MD Procedure Date No Time: 01/23/2017 Procedure: Upper GI endoscopy Indications: Anemia, Heme positive stool, Melena Medicines: Propofol per Anesthesia Complications: No immediate complications. Procedure: Pre-Anesthesia Assessment: - ASA Grade Assessment: IV - A patient with severe systemic disease that is a constant threat to life. After obtaining informed consent, the endoscope was passed under direct vision. Throughout the procedure, the patient's blood pressure, pulse, and oxygen saturations were monitored continuously. The GIF [id number] was introduced through the mouth, and advanced to the third part of duodenum. The upper GI endoscopy was accomplished without difficulty. The patient tolerated the procedure well. Findings: Non-severe esophagitis with no bleeding was found in the entire esophagus. A small hiatus hernia was present. as seen on retroflexion Diffuse mild inflammation characterized by congestion (edema) and erythema was found in the entire examined stomach. Localized mild inflammation characterized by congestion (edema) and erythema was found in the duodenal bulb. The 2nd part of the duodenum and 3rd part of the duodenum were normal. Impression: - Non-severe esophagitis. - Hiatus hernia. - Gastritis. - Duodenitis. - Normal 2nd part of the duodenum and 3rd part of the duodenum. - No etiology of bleeding seen Recommendation: - Return to previous diet. - Continue present medications. - [facility]. Procedure Code(s): --- Professional --- EGD REPORT [facility] [address] [place]. [address] NAME: ESTRELLITA TAVAREZ : 40 STATUS : ADM IN [facility]#: [id number] AGE: 76 ADM/REG DATE : 01/21/17 MR#: [id number] REPORT SERV DATE: 01/23/17 DICTATED BY: JEFF HORAN DATE: 01/23/17 REPORT STATUS : Draft TRANSCRIBED BY: [employer] DATE: 01/23/17 95108, Esophagogastroduodenoscopy, flexible, transoral; diagnostic, including collection of specimen(s) by brushing or washing, when performed (separate procedure) Diagnosis Code(s): --- Professional --- K20.9, Esophagitis, unspecified K44.9, Diaphragmatic hernia without obstruction or gangrene K29.70, Gastritis, unspecified, without bleeding K29.80, Duodenitis without bleeding D64.9, Anemia, unspecified R19.5, Other fecal abnormalities K92.1, Melena CPT copyright 2013 [employer]. All rights reserved. The codes documented in this report are preliminary and upon school lunch manager review may be revised to meet current compliance requirements. Jeff Horan MD JEFF HORAN MD 01/23/2017 4:35 PM This report has been signed electronically. Number of Addenda: 0 Note Initiated On: 01/23/2017 2:54 PM Scope Withdrawal Time 0 hours 0 minutes 0 seconds [address] [address]
--- NOTE | ~2017-01-20 | CN ---
Consultation Report [facility] [address] [place]. [address] NAME: THA HAMILTON : 40 STATUS : ADM IN PAT#: [id number] AGE: 76 ADM/REG DATE : 01/21/17 MR#: [id number] REPORT SERV DATE: 01/22/17 DICTATED BY: BRANDAN GARZA JR. DATE: 01/21/17 REPORT STATUS : Draft TRANSCRIBED BY: CASH DATE: 01/21/17 CONSULTATION DATE OF CONSULTATION: INDICATION FOR CONSULTATION: Gastrointestinal hemorrhage. 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 She subsequently was sent to rehab, but left against medical advice and was readmitted with chest pain off medications. Medications were resumed with no further issue. She then presented with gastrointestinal hemorrhage, but was stabilized and discharged home, but then re- presents again to [facility] with reported chest pain, jaw pain, and tarry stools. Hematocrit is noted to be 15.6 with a hemoglobin of 5.2. Discharged hemoglobin on 01/14/2017 was 8.8. Currently, she is asymptomatic and asking for coffee. Currently, she denies any chest pain. REVIEW OF SYSTEMS: A 10-point review of systems otherwise is unremarkable. ALLERGIES: CODEINE. MEDICATIONS: Included acetaminophen, albuterol, aluminum and magnesium hydroxide, aspirin, atorvastatin, bisacodyl, Bumex, magnesium oxide, melatonin, metformin, milk of magnesium, morphine, naloxegol, Zofran, oxycodone, Protonix, potassium, and Ellipta as well as Plavix, diltiazem, and isosorbide. PAST MEDICAL HISTORY: Notable for history of coronary artery disease, arthritis, emphysema, prior CVA, TIA, bilateral neuropathy, diabetes mellitus, prior meningitis, sensorineural hearing loss, history of sleep apnea, diverticulitis, gastroesophageal reflux, hiatal hernia, irritable bowel, postmenopausal, chronic anemia. PAST SURGICAL HISTORY: Notable for prior PCI, CAB, hysterectomy, hip surgery, right middle lobe cancer with node resection, CAB in 2004, PCI in 2004 and 2008 with bare-metal stent to the BRONSON to the LAD, and on 12/26/2016, lumbosacral surgery with debridement. SOCIAL HISTORY: Notable for tobacco use until recently, greater than 200-pack year. No ethanol use. FAMILY HISTORY: Notable for heart disease. Consultation Report [facility] [address] [place]. [address] NAME: THA HAMILTON : 40 STATUS : ADM IN PAT#: [id number] AGE: 76 ADM/REG DATE : 01/21/17 MR#: [id number] REPORT SERV DATE: 01/22/17 DICTATED BY: BRANDAN GARZA JR. DATE: 01/21/17 REPORT STATUS : Draft TRANSCRIBED BY: CASH DATE: 01/21/17 PHYSICAL EXAMINATION: VITAL SIGNS: Blood pressure was 118/32 mmHg, pulse 70, respirations 16, pulse oximetry is 99%. HEENT: Unremarkable. NECK: Supple without jugular venous distention, but there are carotid bruits noted. CARDIOVASCULAR SYSTEM: Regular rhythm, S4, questionable S3. LUNGS: Diminished in the bases. ABDOMEN: Normoactive bowel sounds. Soft. EXTREMITIES: 1+. No pedal edema. NEUROLOGIC: She is grossly intact. LABORATORY DATA: EKG is notable for sinus rhythm, PAC, delayed R-wave progression, nonspecific ST changes with no acute ST-segment changes. LVH is noted with strain pattern. H and H 5.2 and 15.6, white count 7.7, platelet count 190,000. Normal liver enzymes. Sodium 139, potassium 4.2, chloride 105, CO2 of 29, BUN 15, creatinine 1.08, glucose 148, calcium 8.5, magnesium 1.9. Lipase 77. Chest x-ray is notable for mild cardiomegaly. No acute changes noted. Abdominal pelvis is noted for a cholelithiasis. Troponin 0.06. IMPRESSION: 1. 76-year-old white female with known epicardial coronary artery disease status post recent bare-metal stent with second presentation following PCI bare-metal stent approximately three and half weeks ago. 2. Hypertension. 3. Diabetes. 4. Neuropathy. 5. Strain-induced elevation of troponin with demand ischemia treated with packed red blood cells. PLANS AND RECOMMENDATIONS: 1. We would hold aspirin and Plavix for five days with anticipated endoscopy and colonoscopy. Current cardiac condition is satisfactory for planned procedure. 2. Perioperative blood pressure control with perioperative beta blockade and nitrates. DVT prophylaxis. We will follow along with you. SANJAY/CASH Brandan Garza Jr., M.D. / [id number] CC: Consultation Report [address] [address] NAME: THA HAMILTON : 40 STATUS : ADM IN PAT#: [id number] AGE: 76 ADM/REG DATE : 01/21/17 MR#: [id number] REPORT SERV DATE: 01/22/17 DICTATED BY: BRANDAN GARZA JR. DATE: 01/21/17 REPORT STATUS : Draft TRANSCRIBED BY: CASH DATE: 01/21/17 MD Kerwin Saldana M.D.
--- NOTE | ~2017-01-20 | EGD ---
EGD REPORT [facility] [address] [address] NAME: ESTRELLITA TAVAREZ : 40 STATUS : ADM IN PAT#: [id number] AGE: 76 ADM/REG DATE : 01/21/17 MR#: [id number] REPORT SERV DATE: 01/23/17 DICTATED BY: JEFF HORAN DATE: 01/23/17 REPORT STATUS : Draft [facility]ANSCRIBED BY: [facility] DATE: 01/23/17 Endoscopy Center Patient Name: Estrellita Tavarez Date of : 1940 Attending MD: JEFF HORAN MD Procedure Date No Time: 01/23/2017 Procedure: Colonoscopy Indications: Heme positive stool, Melena, Rectal bleeding, Anemia Medicines: Propofol per Anesthesia Complications: No immediate complications. Procedure: Pre-Anesthesia Assessment: - ASA Grade Assessment: IV - A patient with severe systemic disease that is a constant threat to life. After I obtained informed consent, the scope was passed under direct vision. Throughout the procedure, the patient's blood pressure, pulse, and oxygen saturations were monitored continuously. The CF [id number] was introduced through the anus and advanced to the terminal ileum. The appendiceal orifice, terminal ileum and rectum were photographed. The colonoscopy was performed without difficulty. The patient tolerated the procedure well. The quality of the bowel preparation was good. Findings: The perianal and digital rectal examinations were normal. The terminal ileum appeared normal. The colon (entire examined portion) appeared normal. A sessile polyp was found in the cecum. The polyp was 2 mm in size. The polyp was removed with a cold biopsy forceps. Resection and retrieval were complete. Four sessile polyps were found in the ascending colon. The polyps were 3 to 5 mm in size. These polyps were removed with a cold snare. Resection and retrieval were complete. Four sessile polyps were found in the descending colon. The polyps were 3 to 5 mm in size. These polyps were removed with a cold snare. Resection and retrieval were complete. A sessile polyp was found in the sigmoid colon. The polyp was 5 mm in size. The polyp was removed with a cold snare. Resection and retrieval were complete. Multiple small and large-mouthed diverticula were found in the recto-sigmoid colon, in the sigmoid colon and in the descending colon. Non-bleeding internal hemorrhoids were found during retroflexion and were mild, medium-sized and Grade I (internal hemorrhoids that do not prolapse). EGD REPORT [address] [address] NAME: ESTRELLITA TAVAREZ : 40 STATUS : ADM IN [facility]#: [id number] AGE: 76 ADM/REG DATE : 01/21/17 MR#: [id number] REPORT SERV DATE: 01/23/17 DICTATED BY: JEFF HORAN DATE: 01/23/17 REPORT STATUS : Draft TRANSCRIBED BY: [employer] DATE: 01/23/17 Impression: - The examined portion of the ileum was normal. - The entire examined colon is normal. - One 2 mm polyp in the cecum. Resected and retrieved. - Four 3 to 5 mm polyps in the ascending colon. Resected and retrieved. - Four 3 to 5 mm polyps in the descending colon. Resected and retrieved. - One 5 mm polyp in the sigmoid colon. Resected and retrieved. - Diverticulosis in the recto-sigmoid colon, in the sigmoid colon and in the descending colon. - Non-bleeding internal hemorrhoids. - No etiology of bleeding seen Recommendation: - Return to previous diet. - Await pathology results. - Repeat colonoscopy in 1 year for surveillance of multiple polyps. - Continue present medications. - Check hemoglobin q 12 hours for three days. - May need a capsule enteroscopy - [facility] patient [facility]. Procedure Code(s): --- Professional --- 26585, Colonoscopy, flexible, proximal to splenic flexure; with removal of tumor(s), polyp(s), or other lesion(s) by snare technique 48743, 59, Colonoscopy, flexible, proximal to splenic flexure; with biopsy, single or multiple Diagnosis Code(s): --- Professional --- K64.0, First degree hemorrhoids K57.30, Diverticulosis of large intestine without perforation or abscess without bleeding D12.5, Benign neoplasm of sigmoid colon D12.4, Benign neoplasm of descending colon D12.2, Benign neoplasm of ascending colon D12.0, Benign neoplasm of cecum R19.5, Other fecal abnormalities K92.1, Melena K62.5, Hemorrhage of anus and rectum D64.9, Anemia, unspecified CPT copyright 2013 [employer]. All rights reserved. The codes documented in this report are preliminary and upon towboat captain review may EGD REPORT [facility] [address] [place] [address] [address] [facility] [place] [address] NAME: ESTRELLITA TAVAREZ : 40 STATUS : ADM IN [facility]#: [id number] AGE: 76 ADM/REG DATE : 01/21/17 MR#: [id number] REPORT SERV DATE: 01/23/17 DICTATED BY: JEFF HORAN DATE: 01/23/17 REPORT STATUS : Draft TRANSCRIBED BY: [employer] DATE: 01/23/17 be revised to meet current compliance requirements. Jeff Horan MD JEFF HORAN MD 01/23/2017 4:49 PM This report has been signed electronically. Number of Addenda: 0 Note Initiated On: 01/23/2017 2:54 PM Scope Withdrawal Time 0 hours 26 minutes 50 seconds [address] [facility] [place] [address]
--- NOTE | ~2017-01-20 | HP ---
History And Physical [id number] [place]. [address] NAME: THA TAVAREZ : 40 STATUS : ADM IN [facility]#: [id number] AGE: 76 ADM/REG DATE : 01/21/17 MR#: [id number] REPORT SERV DATE: 01/21/17 DICTATED BY: LOC DYSON DATE: 01/21/17 REPORT STATUS : Draft TRANSCRIBED BY: MODJuan DATE: 01/21/17 DATE OF ADMISSION: 01/21/2017 ADMISSION DIANGOSES: GI bleed, chest pain, acute kidney injury. CHIEF COMPLAINT: Feeling weak, chest pain. HISTORY OF PRESENT ILLNESS: Mrs. Tavarez is a 76-year-old female with a past medical history which is quite extensive who had a recent admission for a very similar presentation, but now presents with worsening anemia, GI bleed, and chest pain. The patient states that her chest pain has resolved, blood pressure is improved after getting blood products. She was seen down in the emergency room. Her stool has been black and tarry. No abdominal pain however. She had a stent placed six weeks ago and a recent hip fracture. Her heart rate is in the 70s. No family is at the bedside. PAST MEDICAL HISTORY: Constipation, history of GI bleed, heart murmur, coronary artery disease with a history of CABG, stent placement, hypertension, heart failure, diastolic dysfunction, history of COPD, on home oxygen therapy, obstructive sleep apnea, tobacco use, history of right lung cancer with a right middle lobe lobectomy, iron deficiency anemia, chronic pain syndrome, multiple back surgeries, diabetes, reflux esophagitis, history of stroke x2, meningitis in the past, hyperlipidemia. HOME MEDICATIONS: Currently no home medication list provided. Upon review of discharge medication list, the patient was noted to be on aspirin, Lipitor, Bumex, Plavix, diltiazem, fluticasone, insulin, isosorbide mononitrate, magnesium, MS Contin, omeprazole, polyethylene glycol, potassium, Advair, metformin, Spiriva, albuterol, hormonal replacement. ALLERGIES: LISINOPRIL, CODEINE. FAMILY HISTORY: Per record, hypertension and coronary artery disease. SOCIAL HISTORY: The patient continues to smoke, no alcohol use. REVIEW OF SYSTEMS: Again attempted a review of systems, difficult to hear everything the patient says possibly because she does not have her dentures in, but no significant complaints other than chest pain and weakness and not feeling well. PHYSICAL EXAMINATION: VITAL SIGNS: Heart rate 70s, blood pressure currently 90 systolic in the ER, getting blood products and IV fluids, respiratory rate normal, oxygen saturation 95%. HEENT: Neck is supple, edentulous. PULMONARY: Clear to auscultation bilaterally, no crackles or wheezing. CARDIAC: Positive murmur throughout, regular rate and rhythm. ABDOMEN: Soft, nontender, nondistended with positive bowel sounds. EXTREMITIES: Peripheral pulses noted, extremity is lukewarm, no cyanosis, no edema. History And Physical [address] [address] NAME: THA TAVAREZ : 40 STATUS : ADM IN [facility]#: [id number] AGE: 76 ADM/REG DATE : 01/21/17 MR#: [id number] REPORT SERV DATE: 01/21/17 DICTATED BY: LOC DYSON DATE: 01/21/17 REPORT STATUS : Draft TRANSCRIBED BY: CASH DATE: 01/21/17 NEUROLOGIC: The patient is able to move all extremities with no difficulty. LABORATORY EXAMINATION: Hemoglobin 5.2, BUN 50, creatinine 1.08, glucose 148, troponin 0.06. Lipase 77. IMAGING DATA: CT scan of the abdomen was taken with no significant findings per virtual Radiology. Chest x-ray: Essentially clear with evidence of a history of CABG. ASSESSMENT AND PLAN: Mrs. Tavarez is a 76-year-old female with a past medical history noted above who presents with hypotension, fatigue, chest pain in the setting of recent stent. 1. Acute GI bleed: A call has been sent for Dr. Herring. We will start Protonix IV twice daily, n.p.o. We will place a central line. 2. Shock: Continue IV fluids and blood product resuscitation. 3. Mild acute kidney injury: As noted above, evaluate daily with a BMP. 4. Cardiac: The patient has known coronary artery disease, status post CABG and recent stent, will most likely need to continue Plavix at this moment in time, unclear whether patient has intestinal angiodysplasia with concomitant aortic stenosis. Dr. Garza is this patient's crane chaser. 5. Diet: The patient is to be n.p.o. 6. Code status: The patient is currently a do not resuscitate and do not intubate, okay for chemical code and shock. HFQ/MODL Loc Dyson MD / [id number] CC: Loc Dyson MD
--- NOTE | ~2017-01-20 | DS ---
Discharge Summary [facility] [address] [place]. [address] NAME: THA HAMILTON : 40 STATUS : DIS IN PAT#: [id number] AGE: 76 ADM/REG DATE : 01/21/17 MR#: [id number] REPORT SERV DATE: 01/25/17 DICTATED BY: BENEDICTO CASTILLO DATE: 01/25/17 REPORT STATUS : Draft TRANSCRIBED BY: MODL DATE: 01/25/17 ADMISSION DATE: 01/21/2017 DISCHARGE DATE: 01/25/2017 DISCHARGE DIAGNOSES: 1. Acute gastrointestinal bleed with acute blood loss anemia, hemoglobin of 5.2 on presentation, status post two packs of packed red blood cells. The patient's discharge hemoglobin is 8.0. 2. Hemorrhagic shock, present on admission, resolved. 3. Acute kidney injury, present on admission, resolved. 4. Coronary artery disease with history of coronary artery bypass graft. The patient also had recent bare metal stent three weeks ago, the patient is currently on aspirin and Plavix. 5. Chronic obstructive pulmonary disease, on intermittent home oxygen. 6. Diastolic congestive heart failure. 7. Hypertension. 8. Hyperlipidemia. 9. Chronic pain. 10.History of CVAs. CONSULTS: 1. Critical Care. 2. Cardiology. 3. GI. PROCEDURES: EGD and colonoscopy performed 01/23/2017. HOSPITAL COURSE: This is a 76-year-old lady who has a history of GI bleed who was admitted to the hospital with acute blood loss anemia and hemorrhagic shock. For details, please refer to excellent H and P by Dr. Dyson. In summary, the patient initially needed an intensive care unit care due to hemorrhagic shock, but the patient responded to blood transfusion and fluid resuscitation and she really did not require to be on any vasopressors. After the patient has been stabilized the patient underwent EGD and colonoscopy with findings of multiple polyps, but no evidence or source of overt bleeding. The patient is to have H and Hs every 12 hours and the patient was cleared for discharge from GI standpoint to go back to [facility] to continue rehab. The patient did have some fluid fluctuations in her H and Hs from 9 to as low as 7, but with spontaneous improvement, H and H is back to mid 8 and thus the patient's H and Hs will need to be closely followed as well as the patient being monitored closely for evidence of rebleeding in the near future. [facility] DISCHARGE MEDICATIONS: No changes. FOLLOWUP: 1. Please follow up with PCP in the next one to two weeks. Discharge Summary [address] [facility] [place] [address] NAME: THA HAMILTON : 40 STATUS : DIS IN PAT#: [id number] AGE: 76 ADM/REG DATE : 01/21/17 MR#: [id number] REPORT SERV DATE: 01/25/17 DICTATED BY: BENEDICTO CASTILLO DATE: 01/25/17 REPORT STATUS : Draft TRANSCRIBED BY: CASH DATE: 01/25/17 2. Please follow up with Dr. Herring as instructed. 3. Please follow up with Cardiology as instructed. Total of 25 minutes spent in coordinating this patient's discharge today. DICTATED BY: MD XIAO Solorzano/CASH Benedicto Castillo MD / [id number] CC: Benedicto Castillo MD
--- NOTE | ~2017-01-20 | OP ---
Record Of Operation [facility] [address] [place]. [address] NAME: THA HAMILTON : 40 STATUS : ADM IN PAT#: [id number] AGE: 76 ADM/REG DATE : 01/21/17 MR#: [id number] REPORT SERV DATE: 01/21/17 DICTATED BY: LOC VERMA DATE: 01/21/17 REPORT STATUS : Draft TRANSCRIBED BY: MODL DATE: 01/21/17 DATE OF PROCEDURE: 01/21/2017 PROCEDURE: Central line insertion. INDICATION FOR PROCEDURE: Loss of IV access and acute GI bleed, needing blood transfusion. PREOPERATIVE DIAGNOSIS: Gastrointestinal bleed. POSTOPERATIVE DIAGNOSIS: Gastrointestinal bleed. PROCEDURE IN DETAIL: The patient was in the Intensive Care Unit, she had inadequate peripheral IVs, she needed an emergent placement of a central line. We ultrasounded her right subclavian in which she had adequate subclavian vein, attempted to aspirate blood after placing lidocaine in the area and sterilizing in standard fashion with a drape. However, could not thread the guidewire, we did not have any return of air. We then switched to the right IJ position, we had an adequate right IJ for insertion of needle, the patient was placed in Trendelenburg position. After using lidocaine, we inserted a finer needle into the right IJ and placed a guidewire, prior to dilatation, ensured that the guidewire was within the right IJ we then placed a standard triple-lumen catheter in the right IJ in standard fashion with a return of venous blood in all ports. This was sutured in. The patient is quite small, we left some of the central line out; however, some of that did crawl back in by the time we sutured it. Postprocedure chest x-ray shows that the IJ is most likely in the right atrium rather than the sinoatrial junction. OUTCOME: Successful right IJ placement, we will need to watch for ectopy. ANTONIOQ/CASH Loc Verma MD / [id number] CC: Loc Verma MD
[~2017-01-20 23:49] MED LIST changes: +COREG3 PO; +LANTUSCART SC; +MSCONT15 PO; +NITROGLYCERIN SPRAY SL; +PRILOSEC40 MG PO; +ROXICODONE15 MG PO; +ZOFRAN4 PO
[2017-01-21 00:42] LABS: ALBUMIN 3.2 G/DL (3.5-5.0); CALCIUM, SERUM 8.5 MG/DL (8.5-10.4); CHLORIDE, SERUM 105 MMOL/L (96-112); CREATININE 1.08 MG/DL (0.55-1.02); GFR AFRICAN AMERICAN 58 ML/MIN (>=60); GFR NON AFRICAN AMERICAN 50 ML/MIN (>=60); GLUCOSE, SERUM 148 MG/DL (60-99); POTASSIUM, SERUM 4.2 MMOL/L (3.5-5.3); SGOT(AST) 15 U/L (5-40); SGPT(ALT) 19 U/L (5-65); SODIUM, SERUM 139 MMOL/L (135-148); TOTAL BILIRUBIN 0.3 MG/DL (0-1.2); TOTAL PROTEIN 5.6 G/DL (6.0-8.5)
[2017-01-21 00:43] LABS: ALKALINE PHOSPHATASE 63 U/L (45-117); BUN (BLOOD UREA NITROGEN) 50 MG/DL (6-23); CHEST PAIN PROFILE TAT 0 Hrs 01 Mins; CO2 (CARBON DIOXIDE) 29 MMOL/L (24-34); DIRECT BILIRUBIN < 0.1 MG/DL (0.0-0.4); INDIRECT BILIRUBIN(NOT ORDER) 0.2 MG/DL (0.1-0.9); TROPONIN I 0.06 NG/ML (<0.05)
[2017-01-21 00:46] LABS: BASOPHILS 0.3 %; BASOPHILS ABSOLUTE 0.02 10/3/uL (0.0-0.16); EOSINOPHILS ABSOLUTE 0.08 10/3/uL (0.0-0.53); ER CBC TAT 0 Hrs 03 Mins; IMMATURE GRANULOCYTES 0.3 %; IMMATURE GRANULOCYTES ABSOLUTE 0.02 10/3/uL (0.0-0.11); LYMPHOCYTES 20.8 %; MEAN CORPUSCULAR HEMOGLOB 30.1 pg (26.0-34.0); MEAN CORPUSCULAR VOLUME 90.2 fL (80-100); MEAN PLATELET VOLUME 9.4 fL (9.2-13.0); MONOCYTES 9.2 %; MONOCYTES ABSOLUTE 0.71 10/3/uL (0.21-1.20); NEUTROPHILS 68.4 %; NEUTROPHILS ABSOLUTE 5.28 10/3/uL (2.02-8.40); RBC DISTRIBUTION WIDTH 16.9 % (12.0-16.0); WHITE BLOOD CELLS 7.7 10/3/uL (4.5-10.5)
[2017-01-21 00:48] LABS: HEMATOCRIT 15.6 % (36.0-48.0); HEMOGLOBIN 5.2 g/dL (12.0-16.0); MANUAL DIFF NO %; MEAN CORPUS HGB CONC 33.3 g/dL (32.0-36.0); PLATELET COUNT 190 10/3/uL (150-400); RED CELL COUNT 1.73 10/6/uL (4.0-5.6)
[2017-01-21 01:22] LABS: INTERNATIONAL NORMAL RATI 1.1 UNITS (-); PROTIME (NOT ORD) 14.5 SEC (12.0-14.5)
[2017-01-21 01:23] LABS: PARTIAL THROMBO TIME 25.6 SEC (22.5-37.2)
[2017-01-21] MEDS ORDERED: BUSPAR5 PO (02:47)
[2017-01-21] MEDS ORDERED: HALF81 PO (02:47)
[2017-01-21] MEDS ORDERED: BUM1 PO (02:47)
[2017-01-21] MEDS ORDERED: LIPITOR40 PO (02:47)
[2017-01-21] MEDS ORDERED: PLAVIX PO (02:48)
[2017-01-21] MEDS ORDERED: CARTIA XT120 MG/24 PO (02:48)
[2017-01-21] MEDS ORDERED: FLONASE NAS (02:49)
[2017-01-21] MEDS ORDERED: FAMCICLOVIR500 MG PO (02:49)
[2017-01-21] MEDS ORDERED: BREO ELLIPTA INH (02:49)
[2017-01-21] MEDS ORDERED: NOVOLOG SC (02:50)
[2017-01-21] MEDS ORDERED: IMDUR60 PO (02:50)
[2017-01-21] MEDS ORDERED: MELATONIN5 M1 PO (02:51)
[2017-01-21] MEDS ORDERED: GLUCOPHAGE1000 MG PO (02:51)
[2017-01-21] MEDS ORDERED: MAGOX4 PO (02:51)
[2017-01-21] MEDS ORDERED: PROTONIX PO (02:52)
[2017-01-21] MEDS ORDERED: MSCONT15 PO (02:52)
[2017-01-21] MEDS ORDERED: KDUR10 PO (02:52)
[2017-01-21] MEDS ORDERED: MOVANTIK25 MG PO (02:52)
[2017-01-21] MEDS ORDERED: INCRUSE ELLI62.5 MCG INH (02:52)
[2017-01-21] MEDS ORDERED: T PO (02:53)
[2017-01-21] MEDS ORDERED: BISR PR (02:53)
[2017-01-21] MEDS ORDERED: PROVHFA INH (02:53)
[2017-01-21] MEDS ORDERED: MAALOX PO (02:53)
[2017-01-21] MEDS ORDERED: MOMUD PO (02:54)
[2017-01-21] MEDS ORDERED: OXYCOD PO (02:55)
[2017-01-21] MEDS ORDERED: ZOFRAN4 PO (02:55)
[2017-01-21 11:00] LABS: BASOPHILS 0.2 %; BASOPHILS ABSOLUTE 0.01 10/3/uL (0.0-0.16); EOSINOPHILS 0.2 %; EOSINOPHILS ABSOLUTE 0.01 10/3/uL (0.0-0.53); HEMATOCRIT 20.1 % (36.0-48.0); IMMATURE GRANULOCYTES 0.4 %; IMMATURE GRANULOCYTES ABSOLUTE 0.02 10/3/uL (0.0-0.11); LYMPHOCYTES 23.6 %; LYMPHOCYTES ABSOLUTE 1.23 10/3/uL (0.67-4.30); MANUAL DIFF NO %; MEAN CORPUS HGB CONC 34.8 g/dL (32.0-36.0); MEAN CORPUSCULAR HEMOGLOB 30.3 pg (26.0-34.0); MEAN PLATELET VOLUME 9.2 fL (9.2-13.0); MONOCYTES 9.4 %; MONOCYTES ABSOLUTE 0.49 10/3/uL (0.21-1.20); NEUTROPHILS 66.2 %; NEUTROPHILS ABSOLUTE 3.46 10/3/uL (2.02-8.40); PLATELET COUNT 138 10/3/uL (150-400); RBC DISTRIBUTION WIDTH 15.7 % (12.0-16.0); RED CELL COUNT 2.31 10/6/uL (4.0-5.6); WHITE BLOOD CELLS 5.2 10/3/uL (4.5-10.5)
[2017-01-21 17:26] LABS: BASOPHILS 0.3 %; BASOPHILS ABSOLUTE 0.02 10/3/uL (0.0-0.16); EOSINOPHILS 0.9 %; EOSINOPHILS ABSOLUTE 0.05 10/3/uL (0.0-0.53); HEMOGLOBIN 7.9 g/dL (12.0-16.0); IMMATURE GRANULOCYTES 0.3 %; IMMATURE GRANULOCYTES ABSOLUTE 0.02 10/3/uL (0.0-0.11); LYMPHOCYTES 27.7 %; LYMPHOCYTES ABSOLUTE 1.63 10/3/uL (0.67-4.30); MEAN CORPUS HGB CONC 35.1 g/dL (32.0-36.0); MEAN CORPUSCULAR HEMOGLOB 30.4 pg (26.0-34.0); MEAN CORPUSCULAR VOLUME 86.5 fL (80-100); MEAN PLATELET VOLUME 9.9 fL (9.2-13.0); MONOCYTES 9.5 %; MONOCYTES ABSOLUTE 0.56 10/3/uL (0.21-1.20); NEUTROPHILS 61.3 %; PLATELET COUNT 142 10/3/uL (150-400); RBC DISTRIBUTION WIDTH 15.9 % (12.0-16.0); WHITE BLOOD CELLS 5.9 10/3/uL (4.5-10.5)
[2017-01-21 17:27] LABS: HEMATOCRIT 22.5 % (36.0-48.0); MANUAL DIFF NO %
[2017-01-21 19:48] LABS: BASOPHILS 0.2 %; BASOPHILS ABSOLUTE 0.01 10/3/uL (0.0-0.16); EOSINOPHILS 1.8 %; EOSINOPHILS ABSOLUTE 0.11 10/3/uL (0.0-0.53); HEMATOCRIT 23.7 % (36.0-48.0); HEMOGLOBIN 8.3 g/dL (12.0-16.0); IMMATURE GRANULOCYTES 0.5 %; IMMATURE GRANULOCYTES ABSOLUTE 0.03 10/3/uL (0.0-0.11); LYMPHOCYTES 28.1 %; LYMPHOCYTES ABSOLUTE 1.73 10/3/uL (0.67-4.30); MEAN CORPUSCULAR HEMOGLOB 30.4 pg (26.0-34.0); MEAN CORPUSCULAR VOLUME 86.8 fL (80-100); MEAN PLATELET VOLUME 9.4 fL (9.2-13.0); MONOCYTES 9.3 %; MONOCYTES ABSOLUTE 0.57 10/3/uL (0.21-1.20); NEUTROPHILS 60.1 %; PLATELET COUNT 139 10/3/uL (150-400); RED CELL COUNT 2.73 10/6/uL (4.0-5.6); WHITE BLOOD CELLS 6.2 10/3/uL (4.5-10.5)
[2017-01-21 19:53] LABS: MANUAL DIFF NO %
[2017-01-22 02:38] LABS: BASOPHILS 0.4 %; BASOPHILS ABSOLUTE 0.02 10/3/uL (0.0-0.16); EOSINOPHILS 2.7 %; EOSINOPHILS ABSOLUTE 0.15 10/3/uL (0.0-0.53); HEMATOCRIT 22.5 % (36.0-48.0); HEMOGLOBIN 7.6 g/dL (12.0-16.0); IMMATURE GRANULOCYTES 0.4 %; IMMATURE GRANULOCYTES ABSOLUTE 0.02 10/3/uL (0.0-0.11); LYMPHOCYTES 26.7 %; LYMPHOCYTES ABSOLUTE 1.51 10/3/uL (0.67-4.30); MEAN CORPUS HGB CONC 33.8 g/dL (32.0-36.0); MEAN CORPUSCULAR HEMOGLOB 29.7 pg (26.0-34.0); MEAN CORPUSCULAR VOLUME 87.9 fL (80-100); MEAN PLATELET VOLUME 9.7 fL (9.2-13.0); MONOCYTES 9.9 %; MONOCYTES ABSOLUTE 0.56 10/3/uL (0.21-1.20); NEUTROPHILS 59.9 %; NEUTROPHILS ABSOLUTE 3.39 10/3/uL (2.02-8.40); PLATELET COUNT 142 10/3/uL (150-400); RED CELL COUNT 2.56 10/6/uL (4.0-5.6); WHITE BLOOD CELLS 5.7 10/3/uL (4.5-10.5)
[2017-01-22 02:39] LABS: MANUAL DIFF NO %
[2017-01-22 02:50] LABS: ALBUMIN 2.6 G/DL (3.5-5.0); CHLORIDE, SERUM 111 MMOL/L (96-112); CO2 (CARBON DIOXIDE) 28 MMOL/L (24-34); CREATININE 0.64 MG/DL (0.55-1.02); GFR AFRICAN AMERICAN 100 ML/MIN (>=60); GFR NON AFRICAN AMERICAN 87 ML/MIN (>=60); PHOSPHORUS, SERUM 3.4 MG/DL (2.5-4.5); POTASSIUM, SERUM 3.4 MMOL/L (3.5-5.3)
[2017-01-22 02:51] LABS: BUN (BLOOD UREA NITROGEN) 36 MG/DL (6-23); GLUCOSE, SERUM 88 MG/DL (60-99); SODIUM, SERUM 147 MMOL/L (135-148)
[2017-01-22 09:21] LABS: BASOPHILS 0.2 %; BASOPHILS ABSOLUTE 0.01 10/3/uL (0.0-0.16); EOSINOPHILS 1.7 %; EOSINOPHILS ABSOLUTE 0.11 10/3/uL (0.0-0.53); HEMATOCRIT 22.8 % (36.0-48.0); HEMOGLOBIN 7.7 g/dL (12.0-16.0); IMMATURE GRANULOCYTES 0.3 %; IMMATURE GRANULOCYTES ABSOLUTE 0.02 10/3/uL (0.0-0.11); LYMPHOCYTES 21.1 %; LYMPHOCYTES ABSOLUTE 1.33 10/3/uL (0.67-4.30); MEAN CORPUS HGB CONC 33.8 g/dL (32.0-36.0); MEAN CORPUSCULAR VOLUME 88.7 fL (80-100); MEAN PLATELET VOLUME 9.5 fL (9.2-13.0); MONOCYTES 7.9 %; NEUTROPHILS 68.8 %; NEUTROPHILS ABSOLUTE 4.33 10/3/uL (2.02-8.40); PLATELET COUNT 149 10/3/uL (150-400); RED CELL COUNT 2.57 10/6/uL (4.0-5.6); WHITE BLOOD CELLS 6.3 10/3/uL (4.5-10.5)
[2017-01-22 09:22] LABS: MANUAL DIFF NO %
[2017-01-22 15:16] LABS: BASOPHILS 0.2 %; BASOPHILS ABSOLUTE 0.01 10/3/uL (0.0-0.16); EOSINOPHILS 2.2 %; EOSINOPHILS ABSOLUTE 0.14 10/3/uL (0.0-0.53); HEMOGLOBIN 8.4 g/dL (12.0-16.0); IMMATURE GRANULOCYTES 0.5 %; IMMATURE GRANULOCYTES ABSOLUTE 0.03 10/3/uL (0.0-0.11); LYMPHOCYTES 20.6 %; LYMPHOCYTES ABSOLUTE 1.34 10/3/uL (0.67-4.30); MEAN CORPUSCULAR HEMOGLOB 31.1 pg (26.0-34.0); MEAN CORPUSCULAR VOLUME 88.9 fL (80-100); MONOCYTES 8.3 %; MONOCYTES ABSOLUTE 0.54 10/3/uL (0.21-1.20); NEUTROPHILS 68.2 %; NEUTROPHILS ABSOLUTE 4.43 10/3/uL (2.02-8.40); PLATELET COUNT 158 10/3/uL (150-400); RBC DISTRIBUTION WIDTH 16.1 % (12.0-16.0); WHITE BLOOD CELLS 6.5 10/3/uL (4.5-10.5)
[2017-01-22 15:17] LABS: MANUAL DIFF NO %
[2017-01-23 04:53] LABS: INTERNATIONAL NORMAL RATI 1.1 UNITS (-); PROTIME (NOT ORD) 14.4 SEC (12.0-14.5)
[2017-01-23 05:03] LABS: BASOPHILS 0.2 %; BASOPHILS ABSOLUTE 0.01 10/3/uL (0.0-0.16); BUN (BLOOD UREA NITROGEN) 17 MG/DL (6-23); CALCIUM, SERUM 8.1 MG/DL (8.5-10.4); CHLORIDE, SERUM 111 MMOL/L (96-112); CO2 (CARBON DIOXIDE) 29 MMOL/L (24-34); CREATININE 0.68 MG/DL (0.55-1.02); EOSINOPHILS 4.1 %; EOSINOPHILS ABSOLUTE 0.26 10/3/uL (0.0-0.53); GFR AFRICAN AMERICAN 98 ML/MIN (>=60); GFR NON AFRICAN AMERICAN 85 ML/MIN (>=60); GLUCOSE, SERUM 97 MG/DL (60-99); HEMOGLOBIN 7.8 g/dL (12.0-16.0); IMMATURE GRANULOCYTES 0.3 %; IMMATURE GRANULOCYTES ABSOLUTE 0.02 10/3/uL (0.0-0.11); LYMPHOCYTES 28.4 %; MEAN CORPUS HGB CONC 33.9 g/dL (32.0-36.0); MEAN CORPUSCULAR HEMOGLOB 30.8 pg (26.0-34.0); MEAN CORPUSCULAR VOLUME 90.9 fL (80-100); MEAN PLATELET VOLUME 9.8 fL (9.2-13.0); MONOCYTES ABSOLUTE 0.57 10/3/uL (0.21-1.20); NEUTROPHILS ABSOLUTE 3.67 10/3/uL (2.02-8.40); PHOSPHORUS, SERUM 2.6 MG/DL (2.5-4.5); PLATELET COUNT 165 10/3/uL (150-400); POTASSIUM, SERUM 4.2 MMOL/L (3.5-5.3); RBC DISTRIBUTION WIDTH 16.1 % (12.0-16.0); RED CELL COUNT 2.53 10/6/uL (4.0-5.6); SODIUM, SERUM 146 MMOL/L (135-148); WHITE BLOOD CELLS 6.3 10/3/uL (4.5-10.5)
[2017-01-23 05:05] LABS: MANUAL DIFF NO %
[2017-01-23 11:15] LABS: BASOPHILS 0.3 %; BASOPHILS ABSOLUTE 0.02 10/3/uL (0.0-0.16); EOSINOPHILS 3.2 %; EOSINOPHILS ABSOLUTE 0.24 10/3/uL (0.0-0.53); IMMATURE GRANULOCYTES 0.4 %; IMMATURE GRANULOCYTES ABSOLUTE 0.03 10/3/uL (0.0-0.11); LYMPHOCYTES 19.8 %; LYMPHOCYTES ABSOLUTE 1.48 10/3/uL (0.67-4.30); MEAN CORPUS HGB CONC 33.3 g/dL (32.0-36.0); MEAN CORPUSCULAR HEMOGLOB 30.5 pg (26.0-34.0); MEAN CORPUSCULAR VOLUME 91.6 fL (80-100); MEAN PLATELET VOLUME 9.8 fL (9.2-13.0); MONOCYTES 7.2 %; MONOCYTES ABSOLUTE 0.54 10/3/uL (0.21-1.20); NEUTROPHILS 69.1 %; NEUTROPHILS ABSOLUTE 5.16 10/3/uL (2.02-8.40); PLATELET COUNT 197 10/3/uL (150-400); RBC DISTRIBUTION WIDTH 16.3 % (12.0-16.0); WHITE BLOOD CELLS 7.5 10/3/uL (4.5-10.5)
[2017-01-23 11:16] LABS: HEMATOCRIT 28.2 % (36.0-48.0); HEMOGLOBIN 9.4 g/dL (12.0-16.0); MANUAL DIFF NO %; RED CELL COUNT 3.08 10/6/uL (4.0-5.6)
[2017-01-24 11:37] LABS: BASOPHILS 0.1 %; BASOPHILS ABSOLUTE 0.01 10/3/uL (0.0-0.16); EOSINOPHILS ABSOLUTE 0.21 10/3/uL (0.0-0.53); HEMATOCRIT 23.7 % (36.0-48.0); HEMOGLOBIN 7.7 g/dL (12.0-16.0); IMMATURE GRANULOCYTES 0.1 %; IMMATURE GRANULOCYTES ABSOLUTE 0.01 10/3/uL (0.0-0.11); LYMPHOCYTES 17.1 %; LYMPHOCYTES ABSOLUTE 1.19 10/3/uL (0.67-4.30); MANUAL DIFF NO %; MEAN CORPUS HGB CONC 32.5 g/dL (32.0-36.0); MEAN CORPUSCULAR HEMOGLOB 30.3 pg (26.0-34.0); MEAN CORPUSCULAR VOLUME 93.3 fL (80-100); MEAN PLATELET VOLUME 9.8 fL (9.2-13.0); MONOCYTES 9.2 %; MONOCYTES ABSOLUTE 0.64 10/3/uL (0.21-1.20); NEUTROPHILS 70.5 %; NEUTROPHILS ABSOLUTE 4.88 10/3/uL (2.02-8.40); PLATELET COUNT 183 10/3/uL (150-400); RBC DISTRIBUTION WIDTH 16.2 % (12.0-16.0); RED CELL COUNT 2.54 10/6/uL (4.0-5.6); WHITE BLOOD CELLS 6.9 10/3/uL (4.5-10.5)
[2017-01-24 11:48] LABS: CALCIUM, SERUM 8.3 MG/DL (8.5-10.4); CHLORIDE, SERUM 104 MMOL/L (96-112); CO2 (CARBON DIOXIDE) 31 MMOL/L (24-34); CREATININE 0.79 MG/DL (0.55-1.02); GFR AFRICAN AMERICAN 84 ML/MIN (>=60); GFR NON AFRICAN AMERICAN 73 ML/MIN (>=60); POTASSIUM, SERUM 4.3 MMOL/L (3.5-5.3)
[2017-01-24 11:50] LABS: BUN (BLOOD UREA NITROGEN) 12 MG/DL (6-23); GLUCOSE, SERUM 164 MG/DL (60-99); SODIUM, SERUM 139 MMOL/L (135-148)
[2017-01-24 15:54] LABS: HEMOGLOBIN 8.5 g/dL (12.0-16.0)
[2017-01-24 15:55] LABS: HEMATOCRIT 26.1 % (36.0-48.0)
[2017-01-25 06:13] LABS: HEMATOCRIT 25.3 % (36.0-48.0)
== END 2017-01-25 14:23 | DRG 377 ==
LOC: ER 23:49 → CCU 01-21 03:07 → 6NO 01-22 15:48
PROVIDERS: Internal Medicine; Internal Medicine Critical Care Medicine; Internal Medicine Gastroenterology; Specialist
PROC: 05HM33Z Insertion of Infusion Device into Right Internal Jugular Vein, Percutaneous Approach (ICD-10-PCS; principal; 2017-01-21)
PROC: B543ZZA Ultrasonography of Right Jugular Veins, Guidance (ICD-10-PCS; 2017-01-21)
PROC: 30233N1 Transfusion of Nonautologous Red Blood Cells into Peripheral Vein, Percutaneous Approach (ICD-10-PCS; 2017-01-21)
PROC: 0DJ08ZZ Inspection of Upper Intestinal Tract, Via Natural or Artificial Opening Endoscopic (ICD-10-PCS; 2017-01-23)
PROC: 0DBH8ZX Excision of Cecum, Via Natural or Artificial Opening Endoscopic, Diagnostic (ICD-10-PCS; 2017-01-23)
PROC: 0DBM8ZX Excision of Descending Colon, Via Natural or Artificial Opening Endoscopic, Diagnostic (ICD-10-PCS; 2017-01-23)
PROC: 0DBK8ZX Excision of Ascending Colon, Via Natural or Artificial Opening Endoscopic, Diagnostic (ICD-10-PCS; 2017-01-23)
DX: K92.2 Gastrointestinal hemorrhage, unspecified (principal); R57.8 Other shock; N17.9 Acute kidney failure, unspecified; D62 Acute posthemorrhagic anemia; I50.32 Chronic diastolic (congestive) heart failure; I24.8 Other forms of acute ischemic heart disease; I25.10 Atherosclerotic heart disease of native coronary artery without angina pectoris; K20.9 Esophagitis, unspecified; J44.9 Chronic obstructive pulmonary disease, unspecified; K44.9 Diaphragmatic hernia without obstruction or gangrene; K29.70 Gastritis, unspecified, without bleeding; K29.80 Duodenitis without bleeding; K57.30 Diverticulosis of large intestine without perforation or abscess without bleeding; D12.5 Benign neoplasm of sigmoid colon; D12.4 Benign neoplasm of descending colon; D12.2 Benign neoplasm of ascending colon; D12.0 Benign neoplasm of cecum; Z95.1 Presence of aortocoronary bypass graft; Z86.73 Personal history of transient ischemic attack (TIA), and cerebral infarction without residual deficits; E78.5 Hyperlipidemia, unspecified; Z95.5 Presence of coronary angioplasty implant and graft; G89.29 Other chronic pain; Z79.84 Long term (current) use of oral hypoglycemic drugs; Z79.02 Long term (current) use of antithrombotics/antiplatelets; K58.9 Irritable bowel syndrome, unspecified; Z87.891 Personal history of nicotine dependence; E11.40 Type 2 diabetes mellitus with diabetic neuropathy, unspecified
CPT/HCPCS: 36415; 36430; 71010; 74176; 80048; 80069; 80076; 82962; 83036; 83690; 83735; 84100; 84132; 84484; 85014; 85018; 85025; 85610; 85730; 86850; 86900; 86901; 86920; 87641; 88305; 93005; 94640; 96374; 97162-GP; 99291; A9270-GY; C9113; G8978-CK-GP; G8979-CJ-GP; J1956; J2405; J3475; P9016